=== PATIENT | female | born 1960 | race Caucasian/White ===

== ENCOUNTER 2016-08-03 09:18 | Emergency (ER) | payer OTHER ==
[2016-08-03 09:26] VITALS: TEMP 98.8; O2SAT 96
--- NOTE | 2016-08-03 09:35 | EDPHY ---
H & P Stated Complaint: Pain under L breast;dry cough off and on since Xmas Time Seen by Provider: 08/03/16 09:31 HPI/ROS: CHIEF COMPLAINT: Left lower rib pain HISTORY OF PRESENT ILLNESS: The patient presents to the ED with complaints of left lower rib pain which have been present for the past week. The patient did have a mild upper respiratory infection with a slight dry nonproductive cough. Since that time she has had both pleuritic chest pain as well as reproducible chest pain in her costochondral area. She denies rash. She denies history of exertional chest pain, shortness of breath, asymmetric calf pain or swelling, prior history of DVT or cardiac disease. The patient reports her symptoms are mild in nature. REVIEW OF SYSTEMS: A comprehensive 10 point review of systems is otherwise negative aside from elements mentioned in the history of present illness. Source: Patient Exam Limitations: No limitations - Personal History LMP (Females 10-55): Post Menopausal Current Tetanus Diphtheria and Acellular Pertussis (TDAP): Yes - Medical/Surgical History Other PMH: Past medical history: Noncontributory - Social History Smoking Status: Former smoker Alcohol Use: None Drug Use: None - Physical Exam Exam: General Appearance: Alert, no distress Eyes: Pupils equal and round no pallor or injection ENT, Mouth: Mucous membranes moist Respiratory: Tenderness to palpation over the left lower costochondral area, no crepitus, no subcutaneous emphysema Cardiovascular: Regular rate and rhythm Gastrointestinal: Abdomen is soft and nontender, no masses, bowel sounds normal Neurological: A&O, normal motor function, normal sensory exam, normal cranial nerves Skin: Warm and dry, no rash with specifically no evidence of shingles Musculoskeletal: Neck is supple nontender Extremities: symmetrical, full range of motion Constitutional: Initial Vital Signs Temperature (C) 37.1 C 08/03/16 09:20 Heart Rate 72 08/03/16 09:20 Respiratory Rate 16 08/03/16 09:20 Blood Pressure 112/74 08/03/16 09:20 O2 Sat (%) 96 08/03/16 09:20 O2 Delivery Mode Room Air Allergies/Adverse Reactions: Penicillins Allergy (Severe, Verified 08/03/16 09:22) Anaphylaxis Home Medications: Medication Instructions Recorded FLUoxetine [PROzac] 10 mg PO 08/03/16 H R T 08/03/16 LORazepam [Ativan (*)] 0.5 mg PO 08/03/16 Levothyroxine [Synthroid 88 mcg 88 mcg PO DAILY06 08/03/16 (*)] Tiotropium Inhaler [Spiriva 90 mcg IH 08/03/16 Handihaler] Medical Decision Making - Diagnostics EKG Interpretation: EKG: Complete interpretation has been separately recorded in the [employer] archive. Summary impression: Sinus rhythm, short MI interval Imaging: Chest x-ray AP lateral: Images reviewed by myself, negative for rib fracture, pneumothorax, pleural effusion or other acute abnormality. No explanation for left-sided chest pain is noted ED Course/Re-evaluation: The patient presents to the ED for evaluation of pleuritic and reproducible left -sided chest pain for the past week. On exam she is noted to have tenderness in her costochondral area. The patient's D-dimer is negative which I feel adequately excludes pulmonary embolism in this low risk patient. The patient has no evidence of a pneumothorax, arrhythmia or myocardial infarction. The patient did have serial examinations in the ED by myself. At this point time I do feel that she should manage her symptoms with NSAIDs for the next several days. I have instructed her that she should return to the ED immediately for chest pain that is in increasing in character, for the development of shortness of breath or other concerns. I would like her to follow up with her primary care provider for a recheck in the next 3-5 days. The patient is discharged home with stable vital signs. Differential Diagnosis: Differential diagnosis considered includes pulmonary embolism, rib fracture, pneumothorax, costochondritis, myocardial infarction, pericarditis - Data Points Laboratory Results: Laboratory Results 08/03/16 09:48 08/03/16 09:48 08/03/16 09:48 WBC 7.83 10^3/uL (3.80-9.50) RBC 4.78 10^6/uL (4.18-5.33) Hgb 12.5 L g/dL (12.6-16.3) Hct 37.4 L % (38.0-47.0) MCV 78.2 L fL (81.5-99.8) MCH 26.2 L pg (27.9-34.1) MCHC 33.4 g/dL (32.4-36.7) RDW 13.5 % (11.5-15.2) Plt Count 311 10^3/uL (150-400) MPV 10.7 fL (8.7-11.7) Neut % (Auto) 69.8 % (39.3-74.2) Lymph % (Auto) 19.7 % (15.0-45.0) [place] % (Auto) 7.8 % (4.5-13.0) Eos % (Auto) 1.7 % (0.6-7.6) Baso % (Auto) 0.5 % (0.3-1.7) Nucleat RBC Rel Count 0.0 % (0.0-0.2) Absolute Neuts (auto) 5.47 10^3/uL (1.70-6.50) Absolute Lymphs (auto) 1.54 10^3/uL (1.00-3.00) Absolute Monos (auto) 0.61 10^3/uL (0.30-0.80) Absolute Eos (auto) 0.13 10^3/uL (0.03-0.40) Absolute Basos (auto) 0.04 10^3/uL (0.02-0.10) Absolute Nucleated RBC 0.00 10^3/uL (0-0.01) Immature Gran % 0.5 % (0.0-1.1) Immature Gran # 0.04 10^3/uL (0.00-0.10) D-Dimer < 0.27 ug/mLFEU (0.00-0.50) Sodium 141 mEq/L (134-144) Potassium 4.3 mEq/L (3.5-5.2) Chloride 102 mEq/L (97-110) Carbon Dioxide 24 mEq/l (22-31) Anion Gap 15 mEq/L (8-16) BUN 9 mg/dL (7-23) Creatinine 0.8 mg/dL (0.6-1.0) Estimated GFR > 60 Glucose 79 mg/dL (70-100) Calcium 8.9 mg/dL (8.5-10.4) Medications Given: Discontinued Medications Ketorolac Tromethamine (Toradol) 30 mg IVP EDNOW ONE Stop: 08/03/16 10:45 Last Admin: 08/03/16 10:50 Dose: 30 mg Departure - Departure Disposition: Home, Routine, Self-Care Clinical Impression: Costochondritis, acute Condition: Good Instructions: Costochondritis (ED) Additional Instructions: 1. Take Ibuprofen or Motrin 600 mg by mouth three times a day. 2. Return to the emergency department for markedly worsening pain or other concerns. 3. The testing done in the emergency department today demonstrates no evidence of a blood clot, collapsed lung, heart attack or other serious explanation for chest/rib pain. Referrals: Sonia Krueger MD [Primary Care Provider] - As per Instructions
--- NOTE | 2016-08-03 09:35 | CPEKG ---
Heart Rate: 69 RR Interval: 870 P-R Interval: 108 QRSD Interval: 82 QT Interval: 396 QTC Interval: 425 P [place]: 78 QRS [place]: 73 T Wave [place]: 49 EKG Severity - BORDERLINE ECG - EKG Impression: SINUS RHYTHM EKG Impression: SHORT UT INTERVAL, ACCELERATED AV CONDUCTION Electronically Signed By: Christo Perez 03-Aug-2016 16:23:12
[2016-08-03 09:59] LABS: % IMMATURE GRANULYOCYTES 0.5 % (0.0-1.1); ABSOLUTE IMMATURE GRANULOCYTES 0.04 10^3/uL (0.00-0.10); ADD DIFF? NO; ADD MORPH? NO; ADD SCAN? NO; ATYPICAL LYMPHOCYTE FLAG 0 (0-99); FRAGMENT RBC FLAG 0 (0-99); HEMATOCRIT 37.4 % (38.0-47.0); HEMOGLOBIN 12.5 g/dL (12.6-16.3); LEFT SHIFT FLG 0 (0-99); LIPEMIA HEMOLYSIS FLAG 80 (0-99); MEAN CELL HEMOGLOBIN 26.2 pg (27.9-34.1); MEAN CELL HEMOGLOBIN CONCENTR. 33.4 g/dL (32.4-36.7); MEAN CELL VOLUME 78.2 fL (81.5-99.8); MEAN PLATELET VOLUME 10.7 fL (8.7-11.7); PLATELET CLUMPS FLAG 0 (0-99); PLATELET COUNT 311 10^3/uL (150-400); RED BLOOD CELL COUNT 4.78 10^6/uL (4.18-5.33); RED CELL DISTRIBUTION WIDTH 13.5 % (11.5-15.2)
[2016-08-03 10:22] LABS: ANION GAP 15 mEq/L (8-16); CALCIUM 8.9 mg/dL (8.5-10.4); CARBON DIOXIDE 24 mEq/l (22-31); CHLORIDE 102 mEq/L (97-110); CREATININE 0.8 mg/dL (0.6-1.0); GLOMERULAR FILTRATION RATE > 60; GLUCOSE 79 mg/dL (70-100); POTASSIUM 4.3 mEq/L (3.5-5.2); SODIUM 141 mEq/L (134-144)
[2016-08-03] MEDS ORDERED: KETOROLAC 30 MG/1 ML SDV IVP ONE (10:44)
[2016-08-03 12:02] VITALS: BP 112/69; PULSE 74; RESP 15
--- NOTE | 2016-08-03 12:45 | DX ---
PA and Lateral Chest, 2 Views Total, at 10:44 a.m. Clinical Indications: 55-year-old female in the ED complaining of chest pain and shortness of breath since yesterday. Comparison Study: None. Findings: Telemetry monitoring lead lines are present. The lungs are clear, and no masses are found. The heart and pulmonary vessels are normal. There are no pleural effusions, and no pneumothorax. The bones are unremarkable for this age. Impression: Normal.
== END 2016-08-03 12:06 | disposition home or self-care (01) ==
DX: M94.0 Chondrocostal junction syndrome [Tietze] (principal); Z87.891 Personal history of nicotine dependence
CPT/HCPCS: 96374; J1885

== ENCOUNTER 2017-01-01 08:59 | Emergency (ER) | payer OTHER ==
[2017-01-01 09:05] VITALS: BP 120/71; PULSE 87; RESP 19; TEMP 98.2; O2SAT 98
--- NOTE | 2017-01-01 09:22 | EDPHY ---
H & P Stated Complaint: reaction to environmental allergies this am/partner gave epi pen Time Seen by Provider: 01/01/17 09:19 - Personal History Current Tetanus/Diphtheria Vaccine: Yes - Medical/Surgical History Hx Asthma: Yes Hx Chronic Respiratory Disease: No Hx Diabetes: No Hx Cardiac Disease: No Hx Renal Disease: No Hx Cirrhosis: No Hx Alcoholism: No Hx HIV/AIDS: No Hx Splenectomy or Spleen Trauma: No Other PMH: allergies/anxiety - Social History Smoking Status: Former smoker Constitutional: Initial Vital Signs Temperature (C) 36.8 C 01/01/17 09:02 Heart Rate 87 01/01/17 09:02 Respiratory Rate 19 01/01/17 09:02 Blood Pressure 120/71 01/01/17 09:02 O2 Sat (%) 98 01/01/17 09:02 O2 Delivery Mode Room Air Allergies/Adverse Reactions: Penicillins Allergy (Severe, Verified 01/01/17 09:00) Anaphylaxis Home Medications: Medication Instructions Recorded FLUoxetine [PROzac] 10 mg PO 08/03/16 H R T 08/03/16 LORazepam [Ativan (*)] 0.5 mg PO 08/03/16 Levothyroxine [Synthroid 88 mcg 88 mcg PO DAILY06 08/03/16 (*)] Tiotropium Inhaler [Spiriva 90 mcg IH 08/03/16 Handihaler] BENADRYL 01/01/17 EPINEPHrine [Epipen 0.3 MG] 0.3 mg IM ONCE #2 syr 01/01/17 Hydroxyzine HCl 01/01/17 Medical Decision Making ED Course/Re-evaluation: CHIEF COMPLAINT: Possible allergic reaction. HISTORY OF PRESENT ILLNESS: This patient is a 56 year old female presenting with her partner following EpiPen administration for possible allergic reaction. She states she felt she could not breathe, that her chest was right, and her "throat was closing up". She describes her pain asssociaed with breathing as seemingly localized to her diaphragm. She reports recent allergic testing, and states she is allergic to "many food and environmental" substances. She has asthma as well, and her partner reports that witnessing a cat fight this morning may have triggered a stress-induced response. Her partner administered her EpiPen, but states she does not think the full dose was administered because she did not hold the pen for the full recommended duration. The patient also took Benadryl and hydroxyzine at home. She has no evidence of respiratory distress at this time and states she is feeling better. She denies fever, chills, nausea, or other associated symptoms REVIEW OF SYSTEMS: A 10 point review of systems was performed and is negative with the exception of the elements mentioned in the history of present illness. PHYSICAL EXAM: HR, BP, O2 Sat, RR. Temp noted General Appearance: Alert, well hydrated, appropriate, and non-toxic appearing. Head: Atraumatic without scalp tenderness or obvious injury Eyes: Pupils equal, round, reactive to light and accommodation, EOMI, no trauma , no injection. Ears: Clear bilaterally, no perforation, normal landmarks Nose: Atraumatic, no rhinorrhea, clear. Throat: There is no erythema or exudates, no lesions, normal tonsils, mucus membranes moist. Neck: Supple, nontender, no lymphadenopathy. Respiratory: No retractions, no distress, no wheezes, and no accessory muscle use. Lungs are clear to auscultation bilaterally. Cardiovascular: Regular rate and rhythm, no murmurs, rubs, or gallops. Good capillary refill all extremities. Gastrointestinal: Abdomen is soft, nontender, non-distended, no masses, no rebound, no guarding, no peritoneal signs. Musculoskeletal: Normal active ROM of all extremities, atraumatic. Neurological: Alert, appropriate, and interactive. Nonfocal neuro exam. Skin: No rashes, good turgor, no nodules on palpation. Past medical history: Allergies, Asthma Past surgical history: Noncontributory Family history: Noncontributory Social history: Partner at bedside DIFFERENTIAL DIAGNOSIS: The differential diagnosis for the patient's shortness of breath included but was not limited to allergy, asthma, and upper respiratory infection. MEDICAL DECISION MAKING: This patient is a 56 year old female presenting following EpiPen administration for difficulty breathing this morning. The patient is not currently in any respiratory distress. Physical exam unremarkable. Plan to administer 60mg PO Prednisone, 25mg PO Benadryl, and 40mg PO Pepcid for continued management of prior allergic symptoms. Reassessed patient. She is feeling well. Plan to discharge home in good condition with instructions to follow up with her instrumentation and control technician for continued management. Refilled prescription for EpiPen. - Data Points Medications Given: Discontinued Medications Diphenhydramine HCl (Benadryl) 25 mg PO EDNOW ONE Stop: 01/01/17 09:30 Last Admin: 01/01/17 09:33 Dose: 25 mg Famotidine (Pepcid) 40 mg PO EDNOW ONE Stop: 01/01/17 09:30 Last Admin: 01/01/17 09:34 Dose: 40 mg Prednisone (Prednisone) 60 mg PO EDNOW ONE Stop: 01/01/17 09:30 Last Admin: 01/01/17 09:34 Dose: 60 mg Departure - Departure Disposition: Home, Routine, Self-Care Clinical Impression: Allergic reaction Qualifiers: Encounter type: initial encounter Qualified Code(s): T78.40XA - Allergy, unspecified, initial encounter Asthma Qualifiers: Asthma severity: mild intermittent Asthma complication type: uncomplicated Qualified Code(s): J45.20 - Mild intermittent asthma, uncomplicated Condition: Good Instructions: Epinephrine (By injection), Allergies (ED) Additional Instructions: 1. We have written you a prescription for a new Epi-Pen. Please be sure to follow instructions carefully for administration of this medication. 2. Follow up with your instrumentation and control technician next week to discuss continued management of your allergies and associated symptoms. We have referred you to our primary care physician political consultant if needed, but you may follow up with your regular primary care physician for symptoms unresolved by your allergy follow-up. 3. Return to the Emergency Department for increased difficulty breathing, swelling in your mouth or throat, rash, or other worsening of condition. Referrals: Neo Lyon MD [Medical Doctor] - As per Instructions Prescriptions: EPINEPHrine [Epipen 0.3 MG] 0.3 mg IM ONCE #2 syr Report Scribed for: Campos Shook Report Scribed by: Mary Kate Erazo Date of Report: 01/01/17 Time of Report: 11:50
[2017-01-01] MEDS ORDERED: diphenhydrAMINE 25 MG CAP PO ONE (09:29)
[2017-01-01] MEDS ORDERED: FAMOTIDINE 20 MG TAB PO ONE (09:29)
[2017-01-01] MEDS ORDERED: predniSONE 20 MG TAB PO ONE (09:29)
== END 2017-01-01 09:56 | disposition home or self-care (01) ==
DX: T78.40XA Allergy, unspecified, initial encounter (principal); J45.20 Mild intermittent asthma, uncomplicated; Z87.891 Personal history of nicotine dependence

== ENCOUNTER → 2017-08-31 | Outpatient (CLI) | payer OTHER | LOC: FIMAGING 15:46 | PROVIDERS: ATTEND Family Medicine | DX: Z12.31 Encounter for screening mammogram for malignant neoplasm of breast (principal) ==

== ENCOUNTER → 2018-09-03 | Outpatient (CLI) | payer OTHER | LOC: FIMAGING 10:05 | PROVIDERS: ATTEND Family Medicine | DX: Z12.31 Encounter for screening mammogram for malignant neoplasm of breast (principal); M81.0 Age-related osteoporosis without current pathological fracture; Z13.820 Encounter for screening for osteoporosis ==